=== PATIENT | male | born 1980 | race Caucasian/White ===

== ENCOUNTER → 2024-02-27 | Emergency (ER) | payer OTHER ==
[~2024-02-27] VITALS: Ht 172.7 cm; Wt 65.9 kg
[2024-02-27] MEDS: METHOCARBAMOL 500 MG TABLET PO ONE (23:50)
[2024-02-27] MEDS: IBUPROFEN 400 MG TABLET PO ONE (23:50)
[2024-02-27] MEDS: ACETAMINOPHEN 325 MG TABLET PO ONE (23:51)
[2024-02-27 23:55] VITALS: BP 117/66; PULSE 77; RESP 14; TEMP 98.6; O2SAT 99
== END | disposition home or self-care (01) ==
LOC: EMS 23:25
DX: M75.92 Shoulder lesion, unspecified, left shoulder (principal)
CPT/HCPCS: 29105; 99284; 73030-TC; Z7502; Z7610